=== PATIENT | female | born 1945 | race Caucasian/White ===

== ENCOUNTER 2020-03-29 11:28 | Observation (INO) ==
[2020-03-29 13:03] LABS: Basophils # (auto) 0.01 K/uL (0-0.2); Basophils % (auto) 0.2 %; Eosinophils # (auto) 0.14 K/uL (0-0.5); Eosinophils % (auto) 3.1 %; Hematocrit (blood only) 41.4 % (37-47); Hemoglobin 14.2 g/dL (12.0-16.0); Immature Granulocytes # (auto) 0.02 K/uL (0.00-0.02); Immature Granulocytes % (auto) 0.4 %; Lymphocytes # (auto) 2.24 K/uL (1.2-3.4); Lymphocytes % (auto) 48.9 %; Mean Corpuscular Hemoglobin 31.9 pg (25-34); Mean Corpuscular Hgb Conc 34.3 g/dL (32-36); Mean Platelet Volume 10.7 fL (7.4-10.4); Monocytes # (auto) 0.25 K/uL (0.11-0.59); Monocytes % (auto) 5.5 %; Neutrophils # (auto) 1.92 K/uL (1.4-6.5); Neutrophils % (auto) 41.9 %; Platelet Count 111 K/uL (130-400); RDW Coefficient of Variation 12.9 % (11.5-14.5); RDW Standard Deviation 43.5 fL (36.4-46.3); Red Blood Count 4.45 M/uL (4.2-5.4); White Blood Count 4.58 K/uL (4.8-10.8)
[2020-03-29 13:39] LABS: Alanine Aminotransferase 57 U/L (12-78); Albumin Globulin Ratio 1.1 (0.9-2); Albumin Level 3.7 gm/dl (3.4-5.0); Alkaline Phosphatase 99 U/L (45-117); BUN Creatinine Ratio 14.4 (10-20); Bilirubin,Total 0.6 mg/dl (0.2-1); Blood Urea Nitrogen 11 mg/dl (7-18); Carbon Dioxide 23 mmol/L (21-32); Chloride 112 mmol/L (98-107); Est GFR (African American) 91.9; Est GFR (Non-African American) 79.3; Globulin 3.3 gm/dl (2.5-4.0); Glucose 91 mg/dl (70-99); Sodium 142 mmol/L (136-145)
--- NOTE | 2020-03-29 13:50 | Emergency Department Note ---
ED Visit Note I assisted Dr. Reis in the care of this patient. Please see attending attestation for additional information. Jas Aburto DO Resident, Family & Community [facility], [facility] . Resident Activity Tracking Resident Involvement: Resident Care Provided Care Provided: Adult Hospital Medicine
[2020-03-29 14:12] LABS: Platelet Estimate Decreased (Normal)
[2020-03-29] MEDS ORDERED: SODIUM CHLORIDE 0.9% 1000ML 1,000 ML IV SCH (14:15)
[2020-03-29] MEDS ORDERED: OPTIRAY 320 125ml IV ONE (14:32)
--- NOTE | 2020-03-29 14:45 | CT Scan Report ---
CT head/brain wo con CLINICAL HISTORY: dizzy, visual changes COMPARISON STUDY: No previous studies for comparison. TECHNIQUE: Axial CT of the brain is performed from the vertex to the skull base. IV contrast was not administered for this examination. A dose lowering technique was utilized adhering to the principles of ALARA. CT DOSE: FINDINGS: No intra or extra-axial mass lesions are visualized. There is no CT evidence of acute cortical infarc tion. There is no evidence of midline shift. There is no acute hemorrhage. No calvarial fractures ar e visualized. There are minor white matter hypodensities likely on a small vessel basis. There is no evidence of pathologic ventricular dilatation. There is no evidence of acute sinusitis IMPRESSION: No acute intracranial findings ACT 112: Negative or not required by law. Electronically signed by: Anthony Brody M.D. 03/29/2020 2:44 PM
--- NOTE | 2020-03-29 14:48 | CT Scan Report ---
CTA ANGIOGRAPHY OF THE HEAD CLINICAL HISTORY: dizzy COMPARISON STUDY: No previous studies for comparison. TECHNIQUE: Helical axial images of the head were obtained following uneventful intravenous administr ation of 120 cc of Optiray 320. Sagittal and coronal reconstructions were viewed as well as maximal i ntensity projections on an independent 3-D workstation. Automated exposure control was utilized for the study. A dose lowering technique was utilized adhering to the principles of ALARA. CT DOSE: 1152.37 mGy.cm FINDINGS: Please note that the head CT will be reported separately. The bilateral M1, M2, A1 and A2 s egments are patent. No intracranial aneurysm is noted. No intraluminal thrombus is noted. Posterior c irculation is intact. Bilateral posterior communicating arteries are noted. There is an anterior comm unicating artery. No dissection or intracranial aneurysm is noted. The CTA of the neck will be report ed separately. IMPRESSION: Unremarkable CT of the head. ACT 112: Negative or not required by law. Electronically signed by: Jadiel Sheikh M.D. 03/29/2020 2:47 PM
--- NOTE | 2020-03-29 14:50 | CT Scan Report ---
CT angio neck with con CLINICAL HISTORY: Dizziness. Visual changes. Possible stroke. COMPARISON STUDY: No previous studies for comparison. TECHNIQUE: CT angiography was performed from the aortic arch to the skull base. MIP imaging was perfo rmed. The patient was scanned in a dynamic helical fashion during intravenous administration of 120 c c of Optiray 320. A dose lowering technique was utilized adhering to the principles of ALARA. CT DOSE: Technique: CT angiogram of the carotid and vertebral arteries was obtained using intravenous contrast and 3-D reconstruction. NASCET criteria was utilized. Findings: There are multiple tiny biapical pulmonary nodules of uncertain chronicity. The right carotid revealed no evidence of aneurysm and no evidence of dissection. There is no evidenc e of hemodynamic significant stenosis. The left carotid revealed no evidence of hemodynamic significant stenosis. There is no evidence of an eurysm. There is no evidence of dissection. There is no evidence of hemodynamically significant vertebral stenosis. There is no evidence of verte bral dissection. IMPRESSION: 1. No evidence of hemodynamically significant carotid or vertebral artery stenosis. No evidence of di ssection. 2. Multiple small biapical pulmonary nodules measuring up to 3 mm in diameter. These are uncertain et iology and chronicity. ACT 112: Negative or not required by law. Electronically signed by: Anthony Brody M.D. 03/29/2020 2:48 PM
--- NOTE | 2020-03-29 14:53 | Emergency Department Note ---
Impression & Plan Visual changes, Hypertensive urgency, Dizziness ED Provider Note Provider: Speedy Reis MD DATE OF SERVICE: 03/29/2020 CHIEF COMPLAINT: dizzy HISTORY OF PRESENT ILLNESS: Patient is a 74-year-old female without significant past medical history reported presenting here today complaining of onset this morning of a funny feeling in her head and having some visual changes. Patient denies any headache or speech change. Patient does states it feels like she has avoid in her head. Denies trauma. Denies recent fevers or illness. Denies history of similar. Patient states that she has been under quite a bit of stress due to caring for her family members but states that she has had some e pisodes where the vision seems to have lines in the ceiling that are bending at the floor is moving just this morning. She denies that she feels like she is spinning in the room. Denies new hearing issues. Patient denies chest pain or palpitations. Patient states she had breakfast this morning. States she did feel a bit unsteady on her feet but has not fallen. REVIEW OF SYSTEMS: A total of 10 review of systems was obtained and negative except as stated above in the HPI. PAST MEDICAL HISTORY: As noted above and including known thrombocytopenia follows with oncology MEDICATIONS:reviewed home medications SOCIAL HISTORY: , lives at home, works for [employer], former smoker distantly PHYSICAL EXAM: GENERAL: alert and oriented in no acute distress on stretcher Head: normocephalic and atraumatic EYES: No injection, discharge or icterus. PERRL, EOMI. NECK: Trachea midline. Supple. ENT: Mucous membranes pink and moist. LUNGS: Airway patent. No retractions. Breath sounds clear with good air entry bilaterally. HEART: Regular rate and rhythm. No chest wall tenderness ABDOMEN: Soft and non-tender, without guarding or rebound. SKIN: Acyanotic, warm, dry, without rashes EXTREMITIES: Without swelling, tenderness or deformity NEUROLOGICAL: No focal deficits. No aphasia. No facial droop or slurred speech. Normal strength and tone in the extremities. Sensation to gross touch normal. No positional change and dizziness symptoms. EK bpm normal sinus rhythm by PVC or PAC. No acute ST segment elevation or depression. Normal QTC. CONTINUOUS CARDIAC MONITORING: was ordered and showed a heart rate of 66 bpm in normal sinus rhythm Patient's hypertension was referred to the [facility] COURSE: [id number] Patient was first seen and H&P performed by resident. 1358 seen by myself with H&P performed. 1522 Patient reassessed and updated. Patient was noted to have a blood pressure of 207 systolic. Discussed plan of care. Patient does become a bit anxious and tearful during encounter. 1535 discussed with the hospitalist team. Patient's laboratory studies and imaging reviewed. Differential includes Benign positional vertigo, dehydration, hypovolemia, anemia, tumor, infection, hypoglycemia, electrolyte abnormalities, cardiac sources, intracerebral event, toxicologic, neurologic, as well as other pathologies. IMPRESSION/MEDICAL DECISION MAKING: Patient presents with some nonspecific neurological symptoms including some dizziness and having some weird visual changes. Denies flashes. Denies eye pain itself. Seems less primarily ophthalmologic and she does not relate that this seems to be focused on one eye more than the other i.e. more bilateral. Denies chest pain or palpitation issues. Basic labs were completed here with slight improvement of previous thrombocytopenia. No leukocytosis. Potassium AST and magnesium hemolyzed initially but other electrolytes within normal limits. Does not seem infectious in nature does appear meningitic at all. Does not seem consistent with least a large vessel stroke. CT the head and CT kristina ogram of the head and neck were completed without significant intracranial pathology or vascular occlusion. Some pulmonary nodules are noted and the patient was updated on these and was somewhat anxious about these given reassurance. EKG and monitor without significant findings. No loss of consci ousness seem like generalized seizure but the slight visual changes are somewhat concerning. The patient does have some improvement now but unsure what caused the initial symptoms. Hypertension worsened into the 200s given a small amount of labetalol here. Discussed with her recommendation for continue to monitor work-up here and she was in agreement. The hospitalist was contacted. DIAGNOSIS: Visual changes, dizziness, hypertensive urgency DISPOSITION: Hospitalist will evaluate Patient was agreeable with this plan. Past Med/Surg History Medical History (Updated 03/29/20 @ 17:19 by Fatuma Dixon PA-C) Anxiety B12 deficiency Depression NAFLD (nonalcoholic fatty liver disease) Obstructive sleep apnea Thrombocytopenia TIA (transient ischemic attack) Surgical History (Updated 03/29/20 @ 17:24 by Fatuma Dixon PA-C) H/O: hysterectomy Hx of tonsillectomy Family History (Updated 03/29/20 @ 17:24 by Fatuma Dixon PA-C) Other Cancer Stroke Social History (Updated 03/29/20 @ 17:24 by Fatuma Dixon PA-C) Smoking Status: Former smoker Cigarettes Per Day: 12 cigarettes per day; Second Hand Exposure: No; Do You Dip or Chew Tobacco: No; Hx Alcohol Use: No Hx Substance Use: No Preferred Language: Estonian Beliefs That Will Affect Care: None Current Living Situation: Alone Other Information That Helps Us Care for You: No Feels Safe at Home: Yes Safety Concerns: Feels Safe At This Time Allergies Allergies Allergy/AdvReac Type Severity Reaction Status Date / Time mometasone furoate Allergy Intermediate PT NOT Verified 03/29/20 15:46 SURE WHAT RX SHE HAD benzonatate Allergy TOUNGE Verified 03/29/20 15:46 [From Rafael Saavedra] SWELLING STITCHES Allergy Mild NYLON Uncoded 03/29/20 15:46 SUTURES Home Meds Home Medications Medication Instructions Recorded Confirmed cyanocobalamin (vitamin B-12) 1,000 mcg IM MONTHLY ml 05/03/19 03/29/20 1,000 mcg/mL injection solution fluoxetine 10 mg capsule 10 mg PO Q OTHER DAY cap 05/03/19 03/29/20 fluoxetine 20 mg PO Q OTHER DAY 03/29/20 03/29/20 Results & Data (ED) Vital Signs Vital Signs - 24 hr 03/29/20 11:32 03/29/20 12:49 03/29/20 13:29 Temperature 36.6 C Temperature Source Oral Pulse Rate 60 Pulse Rate [Apical] 62 Pulse Rate from SpO2 Sensor Respiratory Rate 20 18 Respiratory Effort / Characteristics Non-Labored Respiratory Depth Normal Blood Pressure 192/80 H Blood Pressure [Left Arm] 184/71 H Blood Pressure Mean 117 Blood Pressure Mean [Left Arm] 108 Pulse Oximetry 97 97 97 Oxygen Delivery Method Room Air Room Air Sepsis Recent Fever Within 48 Hours No Sepsis New/Unexplained Change in Mental Status No Sepsis Action Taken by Nursing No Action Required 03/29/20 15:26 03/29/20 15:27 03/29/20 15:30 Temperature Temperature Source Pulse Rate 67 Pulse Rate [Apical] Pulse Rate from SpO2 Sensor 63 64 Respiratory Rate 14 Respiratory Effort / Characteristics Respiratory Depth Blood Pressure 207/95 H Blood Pressure [Left Arm] Blood Pressure Mean 128 Blood Pressure Mean [Left Arm] Pulse Oximetry 97 97 Oxygen Delivery Method Sepsis Recent Fever Within 48 Hours Sepsis New/Unexplained Change in Mental Status Sepsis Action Taken by Nursing 03/29/20 16:00 03/29/20 16:01 03/29/20 16:05 Temperature Temperature Source Pulse Rate 66 64 61 Pulse Rate [Apical] Pulse Rate from SpO2 Sensor 61 Respiratory Rate 18 20 22 Respiratory Effort / Characteristics Respiratory Depth Blood Pressure 187/90 H 197/82 H Blood Pressure [Left Arm] Blood Pressure Mean 124 106 Blood Pressure Mean [Left Arm] Pulse Oximetry 96 Oxygen Delivery Method Sepsis Recent Fever Within 48 Hours Sepsis New/Unexplained Change in Mental Status Sepsis Action Taken by Nursing Laboratory Data Result diagrams: 03/29/20 12:40 03/29/20 16:23 Lab Results 03/29/20 03/29/20 03/29/20 Range/Units 12:40 12:40 14:13 WBC 4.58 L (4.8-10.8) K/uL RBC 4.45 (4.2-5.4) M/uL Hgb 14.2 (12.0-16.0) g/dL Hct 41.4 (37-47) % MCV 93.0 (80-100) fL MCH 31.9 (25-34) pg MCHC 34.3 (32-36) g/dL RDW Std Deviation 43.5 (36.4-46.3) fL RDW Coeff of Caroline 12.9 (11.5-14.5) % Plt Count 111 L (130-400) K/uL MPV 10.7 H (7.4-10.4) fL Immature Gran % (Auto) 0.4 % Neut % (Auto) 41.9 % Lymph % (Auto) 48.9 % Sevier % (Auto) 5.5 % Eos % (Auto) 3.1 % Baso % (Auto) 0.2 % Neut # (Auto) 1.92 (1.4-6.5) K/uL Lymph # (Auto) 2.24 (1.2-3.4) K/uL Sevier # (Auto) 0.25 (0.11-0.59) K/uL Eos # (Auto) 0.14 (0-0.5) K/uL Baso # (Auto) 0.01 (0-0.2) K/uL Immature Gran # (Auto) 0.02 (0.00-0.02) K/uL Platelet Estimate Decreased L (Normal) Sodium 142 (136-145) mmol/L Potassium (3.5-5.1) mmol/L Chloride 112 H (98-107) mmol/L Carbon Dioxide 23 (21-32) mmol/L Anion Gap 7.0 (3-11) BUN 11 (7-18) mg/dl Creatinine 0.74 (0.6-1.2) mg/dl Est Cr Clr Drug Dosing Not Reportable Est GFR ( Amer) 91.9 Est GFR (Non-Af Amer) 79.3 BUN/Creatinine Ratio 14.4 (10-20) Glucose 91 (70-99) mg/dl Calcium 9.0 (8.5-10.1) mg/dl Magnesium (1.8-2.4) mg/dl Total Bilirubin 0.6 (0.2-1) mg/dl AST (15-37) U/L ALT 57 (12-78) U/L Alkaline Phosphatase 99 (45-117) U/L Troponin I < 0.015 (0-0.045) ng/ml Total Protein 7.0 (6.4-8.2) gm/dl Albumin 3.7 (3.4-5.0) gm/dl Globulin 3.3 (2.5-4.0) gm/dl Albumin/Globulin Ratio 1.1 (0.9-2) TSH 2.790 (0.300-4.500) uIu/ml Administered Medications Discontinued Medications Sodium Chloride (Nss 1000ml) 1,000 mls @ 999 mls/hr IV .Q1H1M LUIS EDUARDO Stop: 03/29/20 15:15 Last Infusion: 03/29/20 16:50 Dose: 0 mls/hr Documented by: [id number] Admin: 03/29/20 14:52 Dose: 999 mls/hr Documented by: [id number] Ioversol (Optiray 320 125ml) 120 ml IV ONCE ONE Stop: 03/29/20 14:33 Last Admin: 03/29/20 14:32 Dose: 120 ml Documented by: [id number] Labetalol HCl (Labetalol Hcl Iv 5 Mg/Ml 20ml) 10 mg IV NOW STA Stop: 03/29/20 15:28 Last Admin: 03/29/20 16:07 Dose: 10 mg Documented by: [id number] Cosigned by: [id number] Discharge Plan Visit Data Chief Complaint: Dizziness Stated Complaint: HEAD DOESN'T FEEL RIGHT, DIZZY, NAUSEA ED Provider: Speedy Reis ED Midlevel Provider: Jas Aburto Discharge Problem: Visual changes, Hypertensive urgency, Dizziness Patient Disposition: Admitted As Inpatient Discharge Instructions Interventions: ED Discharge Assessment Last Done: 03/29/20 16:58
[2020-03-29 15:00] LABS: Troponin I < 0.015 ng/ml (0-0.045)
[2020-03-29] MEDS ORDERED: LABETALOL HCL IV 5 MG/ML 20ML IV STA (15:27)
[2020-03-29 16:52] LABS: Magnesium 2.2 mg/dl (1.8-2.4)
--- NOTE | 2020-03-29 17:10 | History & Physical Report ---
Date of Service March 29, 2020 Assessment & Plan (1) Dizziness: (2) Visual changes: HTN Pt is 74 y/o F with PMH TIA, vitamin B12 deficiency, chronic thrombocytopenia, depression, anxiety, sleep apnea on CPAP, NAFLD presented to ER with complaint of dizziness and visual disturbance today. Today episode of dizziness and noticed words on computer screen seemed "distant". Denies any blurred vision or loss of vision, floaters or flashing lights. Patient denies any headache, nausea, vomiting, paresthesias, extremity weakness, speech changes. Since arrival to ER patient states symptoms have resolved. DDX: Hypertensive emergency, TIA, stroke, orthostatic hypotension -In ER patient afebrile, P: 60, RR: 20, BP 192/80, 97% on room air. CT head: Negative, CTA head: Negative, CTA neck no stenosis or dissection. EKG sinus rhythm. TSH: 2.7, labs unremarkable. Repeat potassium and magnesium labs pending secondary to hemolysis -Patient very anxious while in ER -Tele to monitor for arrhythmias -Obtain orthostatic vital signs -Outpatient lipid panel on 03/24/20: Total cholesterol: 160, LDL: 72, HDL: 73, triglycerides: 176 -Outpatient A1c on 03/24/2020: 5.8 -MRI brain -echo -PT/OT consult -Consider adding aspirin if needed, patient is very resistant to any medications including aspirin at this time -Consider neurology neurology consult (3) Hypertensive urgency: BP is elevated in ER 192/80, 207/95 -In ER patient given labetalol IV. Following administration patient reports feeling shaky and does not like how it makes her feel -Repeat BP 155/79 -We will closely monitor BP. May need to be adding oral agent. Will reassess BP when pt gets to floor to re-evaluate (4) Thrombocytopenia: Chronic thrombocytopenia: PLT: 111. Baseline 95-101 -Monitor CBC (5) Anxiety: (6) Depression: Patient noted to be anxious while in ER. She does report she is under stress with illness of family member -Continue fluoxetine (7) Obstructive sleep apnea: -CPAP at bedtime DVT Prophylaxis -SCDs for now Full Code as per discussion with pt Follows with Dr Valencia for routine care Pt was seen and care coordinated with Dr Wilkes. See addendum History of Present Illness Chief Complaint: Dizziness Primary Care Provider: Nik A. Sulman, DO Pt is 74 y/o F with PMH TIA, vitamin B12 deficiency, chronic thrombocytopenia, depression, anxiety, sleep apnea on CPAP, NAFLD presented to ER with complaint of dizziness. Patient states this morning woke up around 5:30 AM and proceeded to go to work. She reports rides bus to work and walks approximately half a mile from bus stop to work. After was at work at approximately 9 AM patient states started feeling a little dizzy. 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 Denies any blurred vision or loss of vision, floaters or flashing lights. Patient denies any headache, nausea, vomiting, paresthesias, extremity weakness, speech changes. Since arrival to ER patient states symptoms have resolved. She feels like her vision is back to normal and is not having any dizziness, lightheadedness. Denies any vertigo type description of symptoms. Patient does report is under a lot of stress his family member is ill. Patient reports history of TIA however is not on any daily aspirin or other medications. Patient states she hates taking medicines. Denies fever/chills, diaphoresis, N/V/D/C, syncope, neck pain, CP, SOB, orthopnea, palpitations, cough, sore throat, choking, otalgia, rhinorrhea, abdominal pain, paresthesias, weakness, extremity weakness, extremity edema, rashes, urinary symptoms. Allergies Allergy/AdvReac Type Severity Reaction Status Date / Time benzonatate Allergy Intermediate TONGUE Verified 03/29/20 17:47 [From Rafael Saavedra] SWELLING mometasone furoate Allergy Intermediate PT NOT Verified 03/29/20 15:46 SURE WHAT RX SHE HAD nylon Allergy Mild Nylon Verified 03/29/20 17:47 Sutures labetalol AdvReac Intermediate shaking Verified 03/29/20 21:12 Home Medications Home Medications Medication Instructions Recorded Confirmed Type cyanocobalamin (vitamin B-12) 1,000 mcg IM MONTHLY ml 05/03/19 03/29/20 History 1,000 mcg/mL injection solution fluoxetine 10 mg capsule 10 mg PO Q OTHER DAY cap 05/03/19 03/29/20 History fluoxetine 20 mg PO Q OTHER DAY 03/29/20 03/29/20 History Past Med/Surg History Medical History (Updated 03/29/20 @ 17:19 by Fatuma Dixon PA-C) Anxiety B12 deficiency Depression NAFLD (nonalcoholic fatty liver disease) Obstructive sleep apnea Thrombocytopenia TIA (transient ischemic attack) Surgical History (Updated 03/29/20 @ 17:24 by Fatuma Dixon PA-C) H/O: hysterectomy Hx of tonsillectomy Family History (Updated 03/29/20 @ 17:24 by Fatuma Dixon PA-C) Other Cancer Stroke Social History (Updated 03/29/20 @ 17:24 by Fatuma Dixon PA-C) Smoking Status: Former smoker Cigarettes Per Day: 12 cigarettes per day; Second Hand Exposure: No; Do You Dip or Chew Tobacco: No; Hx Alcohol Use: No Hx Substance Use: No Preferred Language: Arabic Beliefs That Will Affect Care: None Current Living Situation: Alone Other Information That Helps Us Care for You: No Feels Safe at Home: Yes Safety Concerns: Feels Safe At This Time Review of Systems Review of Systems: All systems reviewed & are unremarkable except as noted in HPI & below Physical Exam Physical Exam: General: no distress, WDWN Head: normocephalic, atraumatic Eyes: PERRL, EOM's intact, conjunctiva non-injected, anicteric ENT: normal inspection external ears, nose, mucous membranes moist Neck: supple, trachea midline, non-tender Lungs: clear, no respiratory distress, no wheezing/rhonchi/rales CV: RRR, no murmur, no pretibial edema Abd: normal BS, soft, non-tender Ext: no cyanosis, no calf tenderness Neuro: A&O x 3, no focal deficits noted, Visual chen intact. No nystagmus, Facial sensation is intact and symmetric, The face is strong and symmetric, Hearing grossly intact, Soft palate elevates symmetrically, no dysarthria, Shoulder shrug intact, Tongue is midline, normal movement, no fasciculations, muscle tone normal. Very anxious affect Skin: warm, dry Results & Data Results & Data ([facility]) Vital Signs (Past 12 Hours) Vital Signs Temp Pulse Pulse Resp BP BP Pulse Ox 03/29/20 16:05 61 22 197/82 H 96 03/29/20 16:01 64 20 187/90 H 03/29/20 16:00 66 18 03/29/20 15:30 67 14 97 03/29/20 15:27 97 03/29/20 15:26 207/95 H 03/29/20 13:29 62 18 184/71 H 97 03/29/20 12:49 97 03/29/20 11:32 36.6 C 60 20 192/80 H 97 Laboratory Results Short CBC 03/29/20 Range/Units 12:40 WBC 4.58 L (4.8-10.8) K/uL Hgb 14.2 (12.0-16.0) g/dL Hct 41.4 (37-47) % Plt Count 111 L (130-400) K/uL BMP 03/29/20 03/29/20 03/29/20 12:40 14:13 16:23 Sodium 142 Potassium 4.0 Chloride 112 H Carbon Dioxide 23 BUN 11 Creatinine 0.74 Glucose 91 Calcium 9.0 Cardiac Enzymes 03/29/20 Range/Units 14:13 Troponin I < 0.015 (0-0.045) ng/ml Liver Function 03/29/20 03/29/20 03/29/20 Range/Units 12:40 14:13 16:23 Total Bilirubin 0.6 (0.2-1) mg/dl AST 44 H (15-37) U/L ALT 57 (12-78) U/L Alkaline Phosphatase 99 (45-117) U/L Albumin 3.7 (3.4-5.0) gm/dl Diagnostic Findings CT HEAD: IMPRESSION: No acute intracranial findings CTA HEAD: IMPRESSION: Unremarkable CT of the head. CTA NECK: IMPRESSION: 1. No evidence of hemodynamically significant carotid or vertebral artery stenosis. No evidence of dissection. 2. Multiple small biapical pulmonary nodules measuring up to 3 mm in diameter. These are uncertain etiology and chronicity. ECG Rate (beats per minute): 62 Rhythm: sinus rhythm Code Status & VTE Plan VTE Prophylaxis Plan VTE Prophylaxis will be ordered: Yes Supervising Physician Co-Signing Physician Notes Attending Addendum: care coordinated with IMAN Sheppard please refer to her notes for full details, I agree with her notes patient seen and examined, records reviewed by myself as well on exam, patient seen sitting up in bed, comfortable, not in distress, somewhat anxious Reports dizziness and blurring of vision have resolved since arrival at the ER Denies headache, chest pain, shortness of breath, palpitations or any other symptoms at the time of my exam Patient shares that she has been a lot of stress lately as 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 No evidence of hemodynamically significant carotid or vertebral artery stenosis. No evidence of dissection. 2. Multiple small biapical pulmonary nodules measuring up to 3 mm in diameter. These are uncertain etiology and chronicity. ASSESSMENT AND PLAN 74-year-old female with history of obstructive sleep apnea, anxiety/depression, thrombocytopenia, presenting with dizziness with diplopia episode this morning. Dizziness with diplopia, likely secondary to uncontrolled hypertension Rule out acute CVA --Per patient, blood pressure measurements as an outpatient reveals systolic BP 140s --CT head and CT angiogram unremarkable --MRI brain without contrast ordered to rule out CVA --If MRI brain does not reveal acute CVA, will start amlodipine 5 mg p.o. daily She reports developing shaking/tremors after labetalol IV given at the ER, will include this to patient's allergy list --Will need close outpatient follow-up regarding hypertension Biapical pulmonary nodules --Found on CT angiogram of the neck, outpatient follow-up and management Plan of care discussed with patient in detail and at length All questions were answered She is understanding, agreeable, comfortable with the plan of care other diagnoses and plan of care as per IMAN Burris S notes Ayad Wilkes MD
[2020-03-29] MEDS ORDERED: ACETAMINOPHEN 325 MG TAB PO PRN (17:24)
[2020-03-29] MEDS ORDERED: PHARMACIST DISCHARGE MED REC CONSULT PRN (17:24)
[2020-03-29] MEDS ORDERED: LORazepam 0.5 MG TAB PO STA (20:49)
[2020-03-29] MEDS ORDERED: LORazepam 0.5 MG TAB ONE (20:53)
--- NOTE | 2020-03-30 05:53 | Electrocardiogram Report ---
Test Reason : Blood Pressure : / mmHG Vent. Rate : 062 BPM Atrial Rate : 062 BPM P-R Int : 134 ms QRS Dur : 092 ms QT Int : 438 ms P-R-T Axes : 065 049 041 degrees QTc Int : 444 ms Normal sinus rhythm Normal ECG When compared with ECG of 01-JUN-1996 14:57, No significant change was found Confirmed by Aguilar Jett ([id number]) on 03/30/2020 5:52:40 AM Referred By: REFERRED SELF Confirmed By:Aguilar Jett
[2020-03-30 06:46] LABS: Hematocrit (blood only) 39.5 % (37-47); Hemoglobin 13.6 g/dL (12.0-16.0); Mean Corpuscular Hemoglobin 32.2 pg (25-34); Mean Corpuscular Hgb Conc 34.4 g/dL (32-36); Mean Corpuscular Volume 93.6 fL (80-100); RDW Coefficient of Variation 12.9 % (11.5-14.5); RDW Standard Deviation 44.2 fL (36.4-46.3); Red Blood Count 4.22 M/uL (4.2-5.4); White Blood Count 3.87 K/uL (4.8-10.8)
--- NOTE | 2020-03-30 07:01 | Magnetic Resonance Report ---
MR brain wo con HISTORY: 74 years-old Female dizziness acute dizziness COMPARISON: Head CT and CTA head and neck 03/29/2020 TECHNIQUE: Multiplanar multisequence MRI of the brain was obtained without the use of IV contrast. FINDINGS: [employer] Tender localizer images demonstrate no gross extracranial abnormality. There is no restricted diffusio n to suggest acute or subacute infarct. Midline structures including the corpus callosum, brainstem, optic chiasm, pituitary and pineal glands appear unremarkable on the sagittal T1 series. No cerebella r tonsillar herniation. Study is mildly motion degraded. Degenerative changes are seen within the kirera ged cervical spine. No acute intracranial hemorrhage, midline shift, abnormal extra-axial collection, hydrocephalus or in tracranial mass. There is a small area of encephalomalacia with mild gliosis within the lateral right temporal parietal distribution is suggestive of remote infarct. Minimal T2/FLAIR prolongation within the perivascular distribution may reflect a degree of chronic microvascular ischemic disease. Major vascular flow voids are patent. Mastoid air cells and paranasal sinuses are clear. The skull, soft ti ssues and orbits are unremarkable. IMPRESSION: No acute intracranial abnormality, specifically there is no evidence of acute or subacute infarct. ACT 112: Negative or not required by law. The above report was generated using voice recognition software. It may contain grammatical, syntax o r spelling errors. Electronically signed by: Lance Bullock M.D. 03/30/2020 7:00 AM
[2020-03-30 07:12] LABS: BUN Creatinine Ratio 14.9 (10-20); Creatinine Clr Calc Pharmacy 69.1 ml/min; Est GFR (African American) 83.6; Est GFR (Non-African American) 72.1
[2020-03-30 07:31] LABS: Platelet Count 95 K/uL (130-400)
[2020-03-30 07:32] LABS: Basophils # (auto) 0.01 K/uL (0-0.2); Basophils % (auto) 0.3 %; Eosinophils % (auto) 2.6 %; Immature Granulocytes # (auto) 0.01 K/uL (0.00-0.02); Immature Granulocytes % (auto) 0.3 %; Lymphocytes # (auto) 1.82 K/uL (1.2-3.4); Monocytes # (auto) 0.28 K/uL (0.11-0.59); Monocytes % (auto) 7.2 %; Neutrophils # (auto) 1.65 K/uL (1.4-6.5); Neutrophils % (auto) 42.6 %; Platelet Estimate Decreased (Normal)
[2020-03-30] MEDS ORDERED: FLUOXETINE HCL 20 MG CAP PO SCH (09:00)
[2020-03-30 10:10] LABS: Chol HDL Ratio 4; Cholesterol 146 mg/dl (0-200); HDL Cholesterol 40 mg/dl; LDL Cholesterol Calculated 65 mg/dl; Triglycerides 203 mg/dl (0-150); VLDL Cholesterol 41 mg/dl
--- NOTE | 2020-03-30 15:06 | Hospitalist Progress Note ---
Date of Service March 30, 2020 Assessment & Plan (1) Hypertensive urgency: Pt is 74 y/o F with PMH TIA, vitamin B12 deficiency, chronic thrombocytopenia, depression, anxiety, sleep apnea on CPAP, NAFLD presented to ER with complaint of dizziness and visual disturbance today. Today episode of dizziness and noticed words on computer screen seemed "distant". Denies any blurred vision or loss of vision, floaters or flashing lights. Patient denies any headache, nausea, vomiting, paresthesias, extremity weakness, speech changes. Since arrival to ER patient states symptoms have resolved. In the ER BP was elevated 207/85-was given IV labetalol Last blood pressure 147/85 Patient was not on any antihypertensive meds at home In her prior clinic visits, patient reports her blood pressure always been in 140s Presentation yesterday with lightheaded and dizzy spell, Of blurred vision could be secondary to hypertensive urgency No evidence of stroke or TIA -MRI of brain shows no evidence of any acute CVA -CTA of neck: No evidence of hemodynamically significant carotid or vertebral artery stenosis -CTA of head: Unremarkable -Patient was initially with reluctant to start on any antihypertensive meds, After a lot of discussion, willing to start on low-dose FRANCISCO JAVIER inhibitor lisinopril 2.5 mg daily Will be followed with family physician closely for future blood pressure monitoring and management -Risk factor modification for future stroke/NM -Outpatient lipid panel on 03/24/20 well-controlled: Total cholesterol: 160, LDL: 72, HDL: 73, triglycerides: 176-LDL within goal -Outpatient A1c on 03/24/2020: 5.8-patient is not a diabetic She usually walks almost 1/half a mile 5 days a week while going to her work As a baseline patient reports she is pretty healthy Given information for low-salt diet (2) Thrombocytopenia: Chronic thrombocytopenia: PLT: 111. Baseline 95-101 -Monitor CBC And thrombocytopenia patient may not be a good candidate for chronic low-dose aspirin therapy Defer the decision to Dr. Nik Valencia patient's primary care physician (3) Dizziness: Possibly secondary to hypertensive urgency, Noted neurological deficit noted in detail brain imaging Symptoms has resolved-BP improved (4) Visual changes: Due to above: Hypertensive urgency Symptom has resolved (5) Anxiety: (6) Depression: -Continue fluoxetine (7) Obstructive sleep apnea: -CPAP at bedtime Full Code as per discussion with pt Stable be discharged home today Hospital follow-up scheduled with family physician on 04/01/2020 By CMS guidelines, a determination that the admission or continued stay is not medically necessary has been made by a member of the UR committee and a physician for this hospital stay, therefore a Code 44 will be completed and the Inpatient admission will be changed to outpatient. Admission and Anticipated Discharge Date Admission Date: March 29, 2020 Subjective Patient sitting updated of the bed, feels fine, Have any dizzy spell, no lightheadedness, no visual symptoms No shortness of breath or dyspnea on exertion Feels like she can return back to work today, Had severe tremor/shaking spell yesterday after getting IV labetalol-added to her allergies/adverse reaction list Last BP check: 147/ Review of Systems Review of Systems: All systems reviewed & are unremarkable except as noted in HPI & below Constitutional: no fever, no chills, no fatigue, no weakness and no anorexia Cardiovascular: no chest pain, no dyspnea, no orthopnea, no palpitations, no lightheadedness, no syncope and no edema Physical Exam Physical Exam: General: no distress, WDWN Head: normocephalic, atraumatic Eyes: PERRL, EOM's intact, conjunctiva non-injected, anicteric ENT: normal inspection external ears, nose, mucous membranes moist Neck: supple, trachea midline, non-tender Lungs: clear, no respiratory distress, no wheezing/rhonchi/rales CV: RRR, no murmur, no pretibial edema Abd: normal BS, soft, non-tender Ext: no cyanosis, no calf tenderness Neuro: A&O x 3, no focal deficits noted, Visual chen intact. No nystagmus, Facial sensation is intact and symmetric, The face is strong and symmetric, Hearing grossly intact, Soft palate elevates symmetrically, no dysarthria, Shoulder shrug intact, Tongue is midline, normal movement, no fasciculations, muscle tone normal. Very anxious affect Skin: warm, dry Results & Data Results & Data ([facility]) Vital Signs (Past 12 Hours) Vital Signs Temp Pulse Resp BP Pulse Ox 03/30/20 14:40 37.1 C 62 18 147/85 H 96 03/30/20 07:48 36.5 C 67 18 144/87 H 91 03/30/20 04:00 37.0 C 66 18 119/72 94
--- NOTE | 2020-03-30 16:36 | Discharge Summary ---
Date of Service March 30, 2020 Admission HPI Per Admitting Provider Pt is 74 y/o F with PMH TIA, vitamin B12 deficiency, chronic thrombocytopenia, depression, anxiety, sleep apnea on CPAP, NAFLD presented to ER with complaint of dizziness. Patient states this morning woke up around 5:30 AM and proceeded to go to work. She reports rides bus to work and walks approximately half a mile from bus stop to work. After was at work at approximately 9 AM patient states started feeling a little dizzy. 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 Denies any blurred vision or loss of vision, floaters or flashing lights. Patient denies any headache, nausea, vomiting, paresthesias, extremity weakness, speech changes. Since arrival to ER patient states symptoms have resolved. She feels like her vision is back to normal and is not having any dizziness, lightheadedness. Denies any vertigo type description of symptoms. Patient does report is under a lot of stress his family member is ill. Patient reports history of TIA however is not on any daily aspirin or other medications. Patient states she hates taking medicines. Denies fever/chills, diaphoresis, N/V/D/C, syncope, neck pain, CP, SOB, orthopnea, palpitations, cough, sore throat, choking, otalgia, rhinorrhea, abdominal pain, paresthesias, weakness, extremity weakness, extremity edema, rashes, urinary symptoms. Principal Diagnosis Dizzy spell Hypertension/high blood pressure Discharge Exam Constitutional WD/WN, vitals as above no acute distress Eyes PERRL, conjunctivae normal, anicteric sclerae ENMT external ear and nose normal, oropharynx normal Neck trachea midline, no thyromegaly Respiratory normal respiratory effort, lungs clear to auscultation Cardiovascular RRR, no murmur, no edema Gastrointestinal (Abdomen) normal bowel sounds, soft, nontender, no hepatosplenomegaly Musculoskeletal no cyanosis or clubbing, extremities motor strength 5/5 Skin no rashes, warm and dry Neurologic PERRL, EOMI, accommodation nl, no face palsy, no dysarthria Psychiatric A+Ox3, euthymic affect Discharge Data Allergies Allergy/AdvReac Type Severity Reaction Status Date / Time benzonatate Allergy Intermediate TONGUE Verified 03/29/20 17:47 [From Rafael Saavedra] SWELLING mometasone furoate Allergy Intermediate PT NOT Verified 03/29/20 15:46 SURE WHAT RX SHE HAD nylon Allergy Mild Nylon Verified 03/29/20 17:47 Sutures labetalol AdvReac Intermediate shaking Verified 03/29/20 21:12 Consultations 03/29/20 15:39 ED Decision to Admit Stat 03/29/20 17:24 Consult Case Management - Discharge Planning Routine Consult Case Management - Discharge Planning Routine Ordered Studies 03/29/20 13:46 CT head/brain wo con Stat 03/29/20 13:47 CT angio head w con Stat CT angio neck with con Stat 03/29/20 17:24 MR brain wo con Routine Hospital Course (1) Hypertensive urgency: Pt is 74 y/o F with PMH TIA, vitamin B12 deficiency, chronic thrombocytopenia, depression, anxiety, sleep apnea on CPAP, NAFLD presented to ER with complaint of dizziness and visual disturbance today. Today episode of dizziness and noticed words on computer screen seemed "distant". Denies any blurred vision or loss of vision, floaters or flashing lights. Patient denies any headache, nausea, vomiting, paresthesias, extremity weakness, speech changes. Since arrival to ER patient states symptoms have resolved. In the ER BP was elevated 207/85-was given IV labetalol Last blood pressure 147/85 Patient was not on any antihypertensive meds at home In her prior clinic visits, patient reports her blood pressure always been in 140s ECHO shows : normal LV function EF 60-65% moderate concentric Left ventricular hypertrophy suggestive of chronic Hypertension pt will benefit with starting on antihypertensive meds -Patient was initially with reluctant to start on any antihypertensive meds, After a lot of discussion, willing to start on low-dose FRANCISCO JAVIER inhibitor lisinopril 2.5 mg daily Will be followed with family physician closely for future blood pressure monitoring and management Presentation yesterday with lightheaded and dizzy spell, Of blurred vision could be secondary to hypertensive urgency No evidence of stroke or TIA -MRI of brain shows no evidence of any acute CVA -CTA of neck: No evidence of hemodynamically significant carotid or vertebral artery stenosis -CTA of head: Unremarkable -Risk factor modification for future stroke/[place] -Outpatient lipid panel on 03/24/20 well-controlled: Total cholesterol: 160, LDL: 72, HDL: 73, triglycerides: 176-LDL within goal -Outpatient A1c on 03/24/2020: 5.8-patient is not a diabetic She usually walks almost 1/half a mile 5 days a week while going to her work As a baseline patient reports she is pretty healthy Given information for low-salt diet (2) Thrombocytopenia: Chronic thrombocytopenia: PLT: 111. Baseline 95-101 -Monitor CBC And thrombocytopenia patient may not be a good candidate for chronic low-dose aspirin therapy Defer the decision to Dr. Nik Valencia patient's primary care physician (3) Dizziness: Possibly secondary to hypertensive urgency, Noted neurological deficit noted in detail brain imaging Symptoms has resolved-BP improved (4) Visual changes: Due to above: Hypertensive urgency Symptom has resolved (5) Anxiety: (6) Depression: -Continue fluoxetine (7) Obstructive sleep apnea: -CPAP at bedtime Full Code as per discussion with pt Stable be discharged home today Hospital follow-up scheduled with family physician on 04/01/2020 By [facility] guidelines, a determination that the admission or continued stay is not medically necessary has been made by a member of the UR committee and a physician for this hospital stay, therefore a Code 44 will be completed and the Inpatient admission will be changed to outpatient. Total Time Total Time Spent Total Time Spent (In Minutes): 35 mins Total Time Includes: Examination of the Patient, Discharge Planning, Medication Reconciliation and Communication With Other Providers Discharge Plan Discharge Items Patient Disposition: Home - Home Health Services Reason For Visit: DIZZINESS,HTN Discharge Diagnosis: Dizzy spell Hypertension/high blood pressure Activity: Resume your previous activity Non-emergency contact: Primary Care Provider Call non-emergency contact if: you have any medication questions Follow-up/Referrals: Nik Valencia DO [Primary Care Provider] - 04/01/20 3:00 pm (Date & Time 04/01/2020 3:00 PM Provider Nik Valencia DO Department General Internal Medicine [facility] ) Diet: Heart Healthy Addtl Attending Provider Instructions: Please have your blood pressure check on next office visit Labetalol added as you allergy list: Causing shaking and tremor In future you should avoid medication of the similar group. New medications: Lisinopril 2.5 mg 1 tablet daily-for high blood pressure You platelet counts been low chronically it 95 today ( normal range 150,000 t0 400,000) you are not prescribed Aspirin- it can lower your platelet count and cause bleeding . Pending Studies at Discharge: No Stand-Alone Forms: [facility], Work/School Release (Inpt), Smoking Cessation Medications and DC Order Prescriptions: New lisinopril 2.5 mg tablet 2.5 mg PO DAILY Qty: 30 RF: 0 Continued fluoxetine 10 mg capsule 10 mg PO Q OTHER DAY RF: 0 cyanocobalamin (vitamin B-12) 1,000 mcg/mL solution 1,000 mcg IM MONTHLY RF: 0 fluoxetine 10 mg capsule 20 mg PO Q OTHER DAY RF: 0 Discharge Orders: Discharge Order (Routine); Ordered 03/30/20 Ordered By: Zuly Coleman/Other Patient Handouts: Tips for Using Less Salt, Low-Salt Choices, Diet Low Salt Dc Admission Data Admit Date/Time: 03/29/20 16:12 Attending Provider: Zuly Esquivel Admit Provider: Ayad Wilkes Primary Care Provider: Nik Valencia Other Providers: Ayad Wilkes Other Interventions: Discharge Summary Assessment (RN) Last Done: 03/30/20 18:25
--- NOTE | 2020-03-30 16:42 | Communication Note ---
Date of Service: March 30, 2020 Code 44 attestation. The chart reviewed for Alethea Molina, 1945 She is a 74-year-old female with significant past medical history of TIA, vit ma B12 deficiency, chronic thrombocytopenia, depression, anxiety sleep apnea on CPAP and NAFLD was admitted yesterday with dizziness secondary to hypertensive urgency. No associated symptoms of stroke and/or TIA and relevant investigations including CTA of the head and neck, CT and MRI of the head, EKG and echo and blood works were unremarkable. Her blood pressure remains stable with medications on hospitalization. She can be discharged today. By CMS guidelines, a determination that the admission or continued stay is not medically necessary has been made by a member of the UR committee and a physician for this hospital stay, therefore a Code 44 will be completed and the Inpatient admission will be changed to outpatient. Dr Radha Andrade(UR committee member.
--- NOTE | 2020-03-30 19:23 | Consultation Report ---
DATE OF CONSULTATION: 03/30/2020 REASON FOR CONSULTATION: Dizzy episode. HISTORY OF PRESENT ILLNESS: The patient is a 74-year-old right-handed female with a history of anxiety. She was in her usual state of health yesterday, in the morning, she was looking at the computer, felt vaguely nauseated, looked at the computer again, saw some oscillopsia or movement of the screen that lasted just seconds, felt generally unwell, but has difficulty describing that and felt subsequently lightheaded. This was not necessarily postural. It was not associated with change in position. She does not comment to dimming of vision or hearing muffling or prashanth vertigo. She may have felt mildly unsteady with walking. There was no change in vision, no double vision. No numbness, no slurring of speech. No unilateral weakness or numbness. She has otherwise been recently well, although is under significant stressors regarding continuing to work while her ex- has metastatic prostate cancer. The bulk of the patient's symptoms lasted 2 hours. She has no prior history of similar episodes. She has not had any ear pain, ringing, hearing loss or pressure. No recent head or neck injury. PAST MEDICAL AND SURGICAL HISTORY: Notable for thrombocytopenia, anxiety, depression, obstructive sleep apnea, nonalcoholic fatty liver disease, history of hysterectomy, tonsillectomy, tubal ligation. FAMILY HISTORY: Cancer and stroke. ALLERGIES: TESSALON PERLES, MOMETASONE FUROATE, NYLON AND LABETALOL, WHICH MADE HER FEEL SHAKY IN THE EMERGENCY ROOM. HOME MEDICATIONS: Prozac and B12. LABORATORY DATA: On admission, white count 4.5, H and H 14/41, platelet count 111. Chemistry profile unremarkable other than AST of 44, LDL cholesterol 65. TSH 2.79. Head CT unremarkable. CTA of head and neck unremarkable. Echocardiogram interpretation summary; interatrial septum is intact with no ASD, left atrial size is normal, right atrial size is normal. Moderate LVH, EF 55-60. Right ventricular systolic function is normal. Electrocardiogram; normal sinus rhythm. MRI of the brain; no acute abnormality. Mild chronic microvascular disease. PHYSICAL EXAMINATION: VITAL SIGNS: On admission, blood pressure was 187/90, currently vitals are 37.1, 62, 18, 147/85, 96% on room air. GENERAL: The patient is awake and alert with normal speech and language and her affect is appropriate. NECK: There are no carotid bruits. HEART: No heart murmurs. Heart has regular rate and rhythm. NEUROLOGIC Pupils are equal, round, reactive to light. Optic nerves are unremarkable. There is normal chen, motility, facial sensation and facial symmetry. Tongue is midline. Uvula elevates symmetrically. Gross hearing is symmetric. Pringle and Rinne are nonlateralizing. Provocative head maneuvers are negative. There is full strength, no drift. Normal-rapid alternating movements. Normal [id number] and [id number]. No dysdiadochokinesia. Sensation is intact to light touch bilaterally. Reflexes are symmetric. Toes are downgoing. Gait, tandem and Romberg are all normal or unremarkable. IMPRESSION: Vaguely described dizziness, oscillopsia - query hypertensive emergency versus transient ischemic attack. PLAN: 1. Agree with gradual control of blood pressure. 2. Agree with antiplatelet therapy with aspirin. Given that it is not definitive that this was a transient ischemic attack, I do not think we need dual antiplatelet therapy. 3. Recommend cardiac monitoring as an outpatient. Lipid status is normal. No suggestive evidence of benign positional vertigo. 4. The patient should see me in followup post discharge.
[2020-03-31] MEDS ORDERED: FLUOXETINE HCL 10 MG CAP PO SCH (09:00)
== END 2020-03-30 18:54 | disposition home health service (06) ==
LOC: ED 11:28 → SUATTDRO 16:12 → INTOOBSV 16:12 → 2N 16:12